=== PATIENT | male | born 1935 | race Caucasian/White ===

== ENCOUNTER 2017-03-12 08:12 | Emergency (ER) | payer OTHER ==
[~2017-03-12] VITALS: Ht 175.3 cm; Wt 78.0 kg
[2017-03-12 08:18] VITALS: BP 168/88; PULSE 89; RESP 16; TEMP 97.9; O2SAT 96
--- NOTE | 2017-03-12 08:56 | PD ---
HPI Chief Complaint: Skin Problem Time Seen by Provider: 08:39 Travel History International Travel<30 days: No Contact w/Intl Traveler<30days: No Traveled to known affect area: No History of Present Illness HPI This 81-year-old male is complaining of a laceration to his left arm. He was reaching into his cabinet when his left arm hit a sharp edge. He sustained a laceration of the forearm. This happened around 7 AM and he has not been able to control the bleeding. He has no numbness or tingling of the arm or hand. He does not take blood thinners. His tetanus is up-to-date. [facility] Past Medical History Medical History: Denies Significant Hx Tetanus Vaccination: > 5 Years Social History Alcohol Use: No Tobacco Use: No (quit 8 yrs ago -smoked cigs for 30+yrs) Substance Use: No Allergies-Medications (Allergen,Severity, Reaction): Coded Allergies: No Known Allergies (Unverified Adverse Reaction, Unknown, 03/12/17) Reported Meds & Prescriptions Reported Meds & Active Scripts Active No Active Prescriptions or Reported Medications Review of Systems General / Constitutional: No: Fever, Chills Eyes: No: Diploplia HENT: No: Headaches Respiratory: No: Cough Gastrointestinal: No: Vomiting, Diarrhea Musculoskeletal: No: Myalgias Neurologic: No: Weakness Hematologic/Lymphatic: Positive: Easy Bruising Physical Exam Narrative GENERAL: Well-developed male SKIN: Focused skin assessment warm/dry. He does have thin skin with senile purpura HEAD: Atraumatic. Normocephalic. EYES: Pupils equal and round. No scleral icterus. No injection or drainage. ENT: No nasal bleeding or discharge. Mucous membranes pink and moist. MUSCULOSKELETAL: No obvious deformities. No clubbing. No cyanosis. No edema. There is a skin tear on the extensor surface of the forearm which is about 8 cm in length. There is some persistent oozing from the wound. NEUROLOGICAL: Awake and alert. No obvious cranial nerve deficits. Motor grossly within normal limits. Normal speech. PSYCHIATRIC: Appropriate mood and affect; insight and judgment normal. Data Data Last Documented VS Vital Signs Date Time Temp Pulse Resp B/P (MAP) Pulse Ox O2 Delivery O2 Flow Rate FiO2 03/12/17 08:18 97.9 89 16 168/88 (114) 96 MDM Medical Decision Making Medical Screen Exam Complete: No Emergency Medical Condition: No Medical Record Reviewed: No Differential Diagnosis Differential includes skin tear, laceration Narrative Course Skin tears been bandaged and patient has been observed for 40 minutes and did not appear to be any bleeding at this time. He'll be released Procedures Procedure Narrative The wound was cleaned with saline. Steri-Strips were used to approximate skin edges. A non-adhesive dressing was applied with some pressure. The patient has been observed and hemostasis has been obtained Diagnosis Primary Impression: Skin tear of left upper extremity Additional Instructions: Return as needed Scripts No Active Prescriptions or Reported Meds Disposition: 01 DISCHARGE HOME Condition: Stable Marcelo Christianson MD Mar 12, 2017 08:56
== END 2017-03-12 09:33 | disposition home or self-care (01) ==
LOC: PHEFT 08:12
DX: S51.812A Laceration without foreign body of left forearm, initial encounter (principal); W22.8XXA Striking against or struck by other objects, initial encounter; Y93.89 Activity, other specified
CPT/HCPCS: 99282

== ENCOUNTER 2017-03-12 14:32 | Emergency (ER) | payer OTHER ==
[~2017-03-12] VITALS: Ht 175.3 cm; Wt 77.5 kg
[2017-03-12 14:45] VITALS: BP 175/79; PULSE 80; RESP 16; TEMP 98.2; O2SAT 97
--- NOTE | 2017-03-12 17:03 | PD ---
HPI . Skin tear Chief Complaint: Skin Problem Time Seen by Provider: 16:04 Travel History International Travel<30 days: No Contact w/Intl Traveler<30days: No Traveled to known affect area: No History of Present Illness HPI 81-year-old male patient presents emergency department for evaluation of bleeding skin tear to his left forearm. Patient was seen at our facility earlier this morning and treated for his skin tear at that time. Patient had hit his left arm on a sharp edge of a cabinet sustaining a skin tear. The bleeding was severe and he was unable to get it to stop at that time. Patient reported the emergency department where a pressure dressing was applied and believe the wound had stopped bleeding. Patient was discharged home but is back to do the bleeding soaking through the pressure dressing that he was sent home with. He should denies any paresthesias of the left arm. Patient is full range of motion with left arm. PFSH Social History Alcohol Use: No Tobacco Use: No (quit 8 yrs ago -smoked cigs for 30+yrs) Substance Use: No Allergies-Medications (Allergen,Severity, Reaction): Coded Allergies: No Known Allergies (Unverified Adverse Reaction, Unknown, 03/12/17) Reported Meds & Prescriptions Reported Meds & Active Scripts Active No Active Prescriptions or Reported Medications Review of Systems Except as stated in HPI: all other systems reviewed are Neg Physical Exam Narrative GENERAL: Well-nourished, well-developed 81-year-old male patient in no acute distress. Nontoxic appearing. SKIN: 2 cm laceration noted to the dorsal aspect of the left forearm that is oozing blood. HEAD: Normocephalic. Atraumatic. EYES: No scleral icterus. No injection or drainage. NECK: Supple, trachea midline. No JVD or lymphadenopathy. CARDIOVASCULAR: Regular rate and rhythm without murmurs, gallops, or rubs. Radial pulses +2 bilaterally. RESPIRATORY: Breath sounds equal bilaterally. No accessory muscle use. GASTROINTESTINAL: Abdomen soft, non-tender, nondistended. MUSCULOSKELETAL: Full range of motion of left upper extremity. BACK: Nontender without obvious deformity. No CVA tenderness. Data Data Last Documented VS Vital Signs Date Time Temp Pulse Resp B/P (MAP) Pulse Ox O2 Delivery O2 Flow Rate FiO2 03/12/17 14:45 98.2 80 16 175/79 (111) 97 Orders Orders Ed Discharge Order (03/12/17 17:03) [facility] Medical Decision Making Medical Screen Exam Complete: Yes Emergency Medical Condition: Yes Differential Diagnosis Differential diagnoses include but not limited to skin tear laceration, cellulitis, bleeding Narrative Course 81-year-old male patient presents emergency department for evaluation of a skin tear that is continuing to bleed despite a pressure dressing applied at our facility earlier today. Pressure dressing was removed Steri-Strips removed. Skin tear cleaned and quick clot applied to wound. Pressure dressing reapplied. Approximately 20 minutes later the pressure dressing was removed and the wound was evaluated and the bleeding had stopped. Patient's thankful for care. Patient discharged home with instructions to follow-up with primary care or return to emergency Department with any worsening condition. Diagnosis Primary Impression: Bleeding Referrals: Primary Care Physician Patient Instructions: General Instructions, Skin Tear (ED) Additional Instructions: Please return to emergency department if your symptoms return or worsen. Follow up with your primary care provider. Keep wound clean and dry. Scripts No Active Prescriptions or Reported Meds Disposition: 01 DISCHARGE HOME Condition: Stable Pily Crouch Mar 12, 2017 17:03
== END 2017-03-12 17:12 | disposition home or self-care (01) ==
LOC: PHED 14:32 → PHEFT 17:12
DX: S51.812A Laceration without foreign body of left forearm, initial encounter (principal); W22.8XXA Striking against or struck by other objects, initial encounter
CPT/HCPCS: 12001; 99282